=== PATIENT | female | born 1970 | race Asian ===

== ENCOUNTER 2018-05-23 17:56 | Emergency (ER) | payer BC ==
[~2018-05-23] VITALS: Ht 152.4 cm; Wt 44.9 kg
[2018-05-23 17:58] VITALS: Ht 152.4 cm; Wt 44.9 kg
[2018-05-23 19:19] LABS: BASOPHIL % 0.5 % (0-2); PLATELET COUNT 305 x10^3mcL (130-400); RED CELL DISTRIBUTION WIDTH 13.4 % (11.5-14.5)
[2018-05-23 19:21] LABS: CALCIUM 8.5 mg/dL (8.5-10.1); CARBON DIOXIDE 26.2 mmol/L (21-32); CHLORIDE SERUM 99 mmol/L (98-107); CREATININE SERUM 0.8 mg/dL (0.6-1.0); GFR1 > 60 mL/min; GLUCOSE SERUM 92 mg/dL (74-106); SODIUM SERUM 133 mmol/L (136-145)
[2018-05-23 19:26] LABS: ALKALINE PHOSPHATASE 36 U/L (46-116); ALT/SGPT 19 U/L (14-59); AST/SGOT 13 U/L (15-37); BILIRUBIN TOTAL 0.1 mg/dL (0.20-1.00); TOTAL PROTEIN, SERUM 7.1 g/dL (6.4-8.2)
[2018-05-23 19:27] LABS: ALBUMIN 3.1 g/dL (3.4-5.0)
[2018-05-23 19:42] LABS: microscopic required? YES; urine erythrocyte TRACE (NEGATIVE)
[2018-05-23 21:41] VITALS: BP 113/44
== END 2018-05-23 21:41 | disposition home or self-care (01) ==
LOC: ED 17:56
PROVIDERS: Emergency Medicine
DX: M79.662 Pain in left lower leg (principal); Z98.890 Other specified postprocedural states
CPT/HCPCS: 36415; 83880; Q0092

== ENCOUNTER 2018-06-15 00:56 | Emergency (ER) | payer BC ==
[~2018-06-15] VITALS: Ht 152.4 cm; Wt 45.4 kg
[2018-06-15 01:00] VITALS: Ht 152.4 cm; Wt 45.4 kg
[2018-06-15 02:27] VITALS: BP 110/60
== END 2018-06-15 02:28 | disposition home or self-care (01) ==
LOC: ED 00:56
DX: R51 Headache (principal); R42 Dizziness and giddiness; Z85.3 Personal history of malignant neoplasm of breast; Z90.12 Acquired absence of left breast and nipple; Z91.040 Latex allergy status; Z91.010 Allergy to peanuts; Z91.018 Allergy to other foods
CPT/HCPCS: J1885